=== PATIENT | female | born 1930 | race Caucasian/White ===

== ENCOUNTER 2016-09-26 10:14 | Emergency (ER) | payer MEDICARE, OTHER | END 2016-09-26 14:57 | disposition home or self-care (01) | LOC: ER 10:14 | DX: N39.0 Urinary tract infection, site not specified (principal); K80.20 Calculus of gallbladder without cholecystitis without obstruction; R16.0 Hepatomegaly, not elsewhere classified; I48.91 Unspecified atrial fibrillation; Z90.710 Acquired absence of both cervix and uterus; Z79.82 Long term (current) use of aspirin | CPT/HCPCS: 36415; 96365; J0696 ==